=== PATIENT | male | born 1995 | race Caucasian/White ===

== ENCOUNTER 2017-02-16 03:56 | Emergency (ER) | payer OTHER ==
[~2017-02-16] VITALS: Ht 162.6 cm; Wt 74.8 kg
--- NOTE | 2017-02-16 03:56 | NUR ---
BIB [facility] TO ER BED 5
[2017-02-16 04:00] VITALS: BP 118/70
--- NOTE | 2017-02-16 04:00 | NUR ---
Patient being evaluated by physician at bedside.
[2017-02-16] MEDS ORDERED: PRON INH (04:03)
--- NOTE | 2017-02-16 04:04 | NUR ---
[facility] FOR PREBOOK TO CLEAR OR ASTHMA . PT DENIES N/V/D; SKIN IS PINK/WARM/DRY; AAOX4 WITH EVEN AND STEADY GAIT; LUNGS CLEAR BL; HR EVEN AND REGULAR; PT DENIES ANY FEVER, CP, SOB, OR COUGH AT THIS TIME; PATIENT STATES PAIN OF 0/10 AT THIS TIME; VSS; PATIENT POSITIONED FOR COMFORT; HOB ELEVATED; BEDRAILS UP X2; BED DOWN. ER MD MADE AWARE OF PT STATUS.
[2017-02-16 04:14] VITALS: BP 118/70
--- NOTE | 2017-02-16 04:14 | NUR ---
Patient discharged with v/s stable. Written and verbal after care instructions given and explained. Patient verbalized understanding. Police with in custody. All questions addressed prior to discharge. Advised to follow up with PMD. DISCHARGED BY DR SILVA.
== END 2017-02-16 04:14 ==
LOC: MED 03:56
DX: Z02.89 Encounter for other administrative examinations (principal); J45.909 Unspecified asthma, uncomplicated; Z79.899 Other long term (current) drug therapy
CPT/HCPCS: 99283

== ENCOUNTER 2017-11-13 07:00 | Emergency (ER) | payer SELFPAY ==
[~2017-11-13 07:00] MED LIST: PRON INH
--- NOTE | 2017-11-13 07:40 | NUR ---
PT CALLED MULTIPLE TIMES BY ALISON HARRISON, NO ANSWER, LWBS AT [phone]
== END 2017-11-13 07:40 | disposition left against medical advice (07) ==
LOC: MED 07:00
DX: S61.419A Laceration without foreign body of unspecified hand, initial encounter (principal); Z53.21 Procedure and treatment not carried out due to patient leaving prior to being seen by health care provider; X58.XXXA Exposure to other specified factors, initial encounter; Y93.89 Activity, other specified; Y99.8 Other external cause status; Y92.89 Other specified places as the place of occurrence of the external cause